=== PATIENT | female | born 1940 | race Caucasian/White ===

== ENCOUNTER 2022-01-14 08:17 | Inpatient (IN) | payer MEDICARE, BC ==
[~2022-01-14 08:17] MED LIST: Acetaminophen 500 MG Tab PO ONE; Bupivacaine 0.5% 50 ML MDV ONE; Dexamethasone 4 MG/ML SDV ONE; Glycopyrrolate 0.2 MG/ML 5 ML MDV ONE; Lidocaine 1% with EPINEPHrine 1:100,000 50 ML MDV ONE; Meropenem 500 MG SDV ONE; Neostigmine Methylsulfate 1 MG/ML 5 ML Syringe ONE; Ondansetron 4 MG/2 ML SDV ONE; Propofol 200 MG/20 ML SDV ONE; Rocuronium 50 MG/5 ML Vial ONE; Sodium Chloride 0.9% 10 ML ONE; fentaNYL 250 MCG/5 ML SDV ONE
[2022-01-14] MEDS ORDERED: Dextrose 5%-Lactated Ringers 1,000 ML IV SCH (08:30)
[2022-01-14] MEDS ORDERED: cefOXitin 2 GM in Sodium Chloride 0.9% 50 ML IV ONE (09:30)
[2022-01-14] MEDS ORDERED: Naloxone 0.4 MG/ML SDV IVPUSH PRN (09:45)
[2022-01-14] MEDS ORDERED: fentaNYL 2,500 MCG in Sodium Chloride 0.9% 200 ML EPIDUR SCH (09:45)
[2022-01-14] MEDS ORDERED: Scopolamine 1.5 MG Transdermal Patch ONE (09:55)
[2022-01-14] MEDS ORDERED: Sodium Chloride 0.9% 10 ML ONE (10:13)
[2022-01-14] MEDS ORDERED: ePHEDrine 50 MG/ML SDV ONE (10:13)
[2022-01-14] MEDS ORDERED: Linezolid 600 MG/300 ML Premix Bag IRR ONE (10:50)
[2022-01-14] MEDS ORDERED: Lactated Ringers 1,000 ML ONE (11:35)
[2022-01-14] MEDS ORDERED: hydrOXYzine HCL 100 MG/2 ML SDV IM PRN (12:57)
[2022-01-14] MEDS: Ondansetron 4 MG/2 ML SDV IVPUSH PRN (13:50)
[2022-01-14] MEDS: SCOPOLAMINE PATCH CHECK TOP SCH (13:56)
[2022-01-14] MEDS ORDERED: ePHEDrine 50 MG/ML SDV IV PRN (14:00)
[2022-01-14] MEDS ORDERED: diphenhydrAMINE 50 MG/ML SDV IVPUSH PRN ×2 (14:00)
[2022-01-14] MEDS ORDERED: Naloxone 0.4 MG/ML SDV IV PRN (14:00)
[2022-01-14] MEDS: Levothyroxine 112 MCG Tab PO SCH (15:17)
[2022-01-14] MEDS: Pantoprazole 40 MG Vial IV SCH (15:20)
[2022-01-14] MEDS: Acetaminophen 325 MG Tab PO SCH ×2 (15:56→22:15)
[2022-01-14] MEDS: Benzocaine/Cetylpyridinium/Menthol Lozenge MUCMEM PRN (15:58)
[2022-01-14] MEDS: cefOXitin 2 GM in Sodium Chloride 0.9% 50 ML IV SCH ×2 (15:59→22:18)
[2022-01-14] MEDS: Docusate Sodium 100 MG Cap PO SCH (20:00)
[2022-01-14] MEDS: atorvaSTATin 10 MG Tab PO SCH (20:01)
[2022-01-14] MEDS ORDERED: traZODone 50 MG Tab PO PRN (21:00)
[2022-01-15] MEDS: Acetaminophen 325 MG Tab PO SCH ×4 (03:48→21:38)
[2022-01-15] MEDS: cefOXitin 2 GM in Sodium Chloride 0.9% 50 ML IV SCH ×4 (03:52→21:45)
[2022-01-15] MEDS: Dextrose 5%-Lactated Ringers 1,000 ML IV SCH ×3 (06:02→15:25)
[2022-01-15] MEDS: fentaNYL 1,250 MCG in Sodium Chloride 0.9% 225 ML EPIDUR SCH ×2 (07:47→10:32)
[2022-01-15] MEDS: SCOPOLAMINE PATCH CHECK TOP SCH (08:42)
[2022-01-15] MEDS: Docusate Sodium 100 MG Cap PO SCH ×2 (08:42→21:38)
[2022-01-15] MEDS: Levothyroxine 112 MCG Tab PO SCH (08:42)
[2022-01-15] MEDS: Pantoprazole 40 MG Vial IV SCH (13:08)
[2022-01-15] MEDS: atorvaSTATin 10 MG Tab PO SCH (21:38)
[2022-01-16] MEDS: Acetaminophen 325 MG Tab PO SCH ×4 (04:35→21:29)
[2022-01-16] MEDS: Dextrose 5%-Lactated Ringers 1,000 ML IV SCH ×2 (05:05→13:09)
[2022-01-16] MEDS ORDERED: Meropenem 500 MG SDV ONE (06:44)
[2022-01-16] MEDS ORDERED: Lidocaine 1% with EPINEPHrine 1:100,000 50 ML MDV ONE (06:44)
[2022-01-16] MEDS ORDERED: Bupivacaine 0.5% 50 ML MDV ONE (06:44)
[2022-01-16] MEDS: Ondansetron 4 MG/2 ML SDV IVPUSH PRN (07:15)
[2022-01-16] MEDS ORDERED: Propofol 200 MG/20 ML SDV ONE (07:22)
[2022-01-16] MEDS ORDERED: Meropenem 500 MG SDV IRR ONE (07:47)
[2022-01-16] MEDS: Docusate Sodium 100 MG Cap PO SCH ×2 (09:07→21:29)
[2022-01-16] MEDS: SCOPOLAMINE PATCH CHECK TOP SCH (09:08)
[2022-01-16] MEDS: Levothyroxine 112 MCG Tab PO SCH (09:09)
[2022-01-16] MEDS: Ibuprofen 400 MG Tab PO SCH ×3 (11:43→21:28)
[2022-01-16] MEDS: Pantoprazole 40 MG Tab.CR PO SCH (11:43)
[2022-01-16] MEDS ORDERED: Magnesium Hydroxide 400 MG/5 ML Susp 30 ML Cup PO ONE (14:00)
[2022-01-16] MEDS ORDERED: Magnesium Hydroxide 400 MG/5 ML Susp 30 ML Cup PO PRN (15:00)
[2022-01-16] MEDS: fentaNYL 1,250 MCG in Sodium Chloride 0.9% 225 ML EPIDUR SCH (16:53)
[2022-01-16] MEDS: atorvaSTATin 10 MG Tab PO SCH (21:28)
[2022-01-17] MEDS: Dextrose 5%-Lactated Ringers 1,000 ML IV SCH (01:22)
[2022-01-17] MEDS: Acetaminophen 325 MG Tab PO SCH ×4 (05:45→21:39)
[2022-01-17] MEDS: Ibuprofen 400 MG Tab PO SCH ×4 (05:45→21:40)
[2022-01-17] MEDS: traMADol 50 MG Tab PO PRN ×3 (07:31→21:46)
[2022-01-17] MEDS: Pantoprazole 40 MG Tab.CR PO SCH (07:31)
[2022-01-17] MEDS: Levothyroxine 112 MCG Tab PO SCH (07:31)
[2022-01-17] MEDS ORDERED: Magnesium Hydroxide 400 MG/5 ML Susp 30 ML Cup PO ONE (08:30)
[2022-01-17] MEDS: SCOPOLAMINE PATCH CHECK TOP SCH (08:44)
[2022-01-17] MEDS: Docusate Sodium 100 MG Cap PO SCH ×2 (08:44→21:39)
[2022-01-17] MEDS ORDERED: Scopolamine 1.5 MG Transdermal Patch TOP SCH (09:00)
[2022-01-17] MEDS: atorvaSTATin 10 MG Tab PO SCH (21:39)
[2022-01-18] MEDS: Acetaminophen 325 MG Tab PO SCH ×4 (05:31→21:00)
[2022-01-18] MEDS: Ibuprofen 400 MG Tab PO SCH ×4 (05:32→22:37)
[2022-01-18] MEDS: Levothyroxine 112 MCG Tab PO SCH (07:18)
[2022-01-18] MEDS: Pantoprazole 40 MG Tab.CR PO SCH (07:18)
[2022-01-18] MEDS: Ondansetron 4 MG Tab.DIS PO PRN ×2 (07:26→20:59)
[2022-01-18] MEDS: SCOPOLAMINE PATCH CHECK TOP SCH (08:31)
[2022-01-18] MEDS: Docusate Sodium 100 MG Cap PO SCH ×2 (08:32→20:59)
[2022-01-18] MEDS: Benzocaine/Cetylpyridinium/Menthol Lozenge MUCMEM PRN (16:20)
[2022-01-18] MEDS: atorvaSTATin 10 MG Tab PO SCH (21:00)
[2022-01-19] MEDS: traMADol 50 MG Tab PO PRN ×2 (01:39→21:05)
[2022-01-19] MEDS: Acetaminophen 325 MG Tab PO SCH ×4 (04:30→21:05)
[2022-01-19] MEDS: Ibuprofen 400 MG Tab PO SCH ×4 (04:30→21:06)
[2022-01-19] MEDS: Pantoprazole 40 MG Tab.CR PO SCH (08:33)
[2022-01-19] MEDS: Magnesium Hydroxide 400 MG/5 ML Susp 30 ML Cup PO SCH ×2 (08:34→20:47)
[2022-01-19] MEDS: Levothyroxine 112 MCG Tab PO SCH (08:34)
[2022-01-19] MEDS: Docusate Sodium 100 MG Cap PO SCH ×3 (08:34→20:48)
[2022-01-19] MEDS: SCOPOLAMINE PATCH CHECK TOP SCH (08:35)
[2022-01-19] MEDS: Nystatin Susp 100,000 Unit/ML 5 ML UD Cup PO SCH ×3 (09:53→21:06)
[2022-01-19] MEDS: Ondansetron 4 MG Tab.DIS PO PRN ×2 (13:01→20:45)
[2022-01-19] MEDS: atorvaSTATin 10 MG Tab PO SCH (20:47)
[2022-01-20] MEDS: Acetaminophen 325 MG Tab PO SCH ×3 (04:17→16:22)
[2022-01-20] MEDS: Ibuprofen 400 MG Tab PO SCH ×3 (04:17→16:22)
[2022-01-20] MEDS: Nystatin Susp 100,000 Unit/ML 5 ML UD Cup PO SCH ×3 (05:55→16:23)
[2022-01-20] MEDS: Pantoprazole 40 MG Tab.CR PO SCH (08:01)
[2022-01-20] MEDS: Docusate Sodium 100 MG Cap PO SCH (08:02)
[2022-01-20] MEDS: Magnesium Hydroxide 400 MG/5 ML Susp 30 ML Cup PO SCH (08:02)
[2022-01-20] MEDS: SCOPOLAMINE PATCH CHECK TOP SCH (08:03)
[2022-01-20] MEDS: Levothyroxine 112 MCG Tab PO SCH (08:04)
[2022-01-20 12:07] VITALS: BP 127/62; PULSE 83
[2022-01-20] MEDS: Ondansetron 4 MG Tab.DIS PO PRN (14:48)
== END 2022-01-20 18:33 | disposition home health service (06) | DRG 330 ==
LOC: JP.SDS 08:17 → JP.ICU 12:05 → EDSTATUS 12:45
PROVIDERS: ADMIT Surgery; ATTEND Surgery
PROC: 0DBP0ZZ Excision of Rectum, Open Approach (ICD-10-PCS; principal; 2022-01-14)
PROC: 0DBN0ZZ Excision of Sigmoid Colon, Open Approach (ICD-10-PCS; 2022-01-14)
PROC: 0DQP0ZZ Repair Rectum, Open Approach (ICD-10-PCS; 2022-01-14)
PROC: 0WQF0ZZ Repair Abdominal Wall, Open Approach (ICD-10-PCS; 2022-01-16)
DX: K62.3 Rectal prolapse (principal); Q43.8 Other specified congenital malformations of intestine; E03.9 Hypothyroidism, unspecified; E78.5 Hyperlipidemia, unspecified; M81.0 Age-related osteoporosis without current pathological fracture; Z79.899 Other long term (current) drug therapy
CPT/HCPCS: 36415; 84443; 88307; 93005; 97110-GP; 97161-GP; 97165-GO; 97530-GP; 97535-GP; A9270-GY; C1713; C1781; C9113; J0171; J0694; J1100; J2020; J2185; J2405; J2704; J2710; J2795; J3010; J3410; J3490; J7050; J7120; J7121; Q0162